=== PATIENT | male | born 1985 | race Asian ===

== ENCOUNTER 2019-01-30 08:14 | Emergency (ER) | payer OTHER ==
[~2019-01-30] VITALS: Ht 167.6 cm; Wt 68.2 kg
[~2019-01-30 08:14] MED LIST: BENA20TA11 PO; GLIM4 PO; METF-444 PO; OMEP20 PO
[2019-01-30] MEDS ORDERED: INSULIN REGULAR, HUMAN 100 UNITS/ML IVP ONE (08:30)
[2019-01-30] MEDS ORDERED: ONDANSETRON HCL 4 MG/2 ML VIAL IVP ONE (08:30)
[2019-01-30] MEDS ORDERED: SODIUM CHLORIDE 0.9% 1,000 ML IV ONE (08:30)
[2019-01-30 08:52] LABS: BASOPHILS % (AUTO) 0.9 % (0.0-2.0); EOSINOPHILS % (AUTO) 1.3 % (1.0-6.0); HEMATOCRIT 53.6 % (41-53); HEMOGLOBIN 18.6 g/dL (13.5-17.5); LYMPHOCYTES # (AUTO) 1.6 K/uL (1.0-4.8); LYMPHOCYTES % (AUTO) 18.9 % (22.0-44.0); MEAN CORPUSCULAR HEMOGLOBIN 29.4 pg (26.0-34.0); MEAN CORPUSCULAR HGB CONC 34.7 G/dL (31.0-37.0); MEAN CORPUSCULAR VOLUME 85 fL (80-100); MONOCYTES # (AUTO) 0.5 K/uL (0.1-1.0); MONOCYTES % (AUTO) 5.4 % (2.0-9.0); NEUTROPHILS # (AUTO) 6.2 K/uL (1.8-7.7); NEUTROPHILS % (AUTO) 73.5 % (40.0-70.0); PLATELET COUNT (AUTO) 250 K/uL (150-450); RED BLOOD CELL COUNT(AUTO) 6.32 MIL/uL (4.50-5.90); RED CELL DISTRIBUTION WIDTH 12.8 % (11.5-14.5)
[2019-01-30 09:15] LABS: ALBUMIN 2.8 g/dL (3.4-5.0); BILIRUBIN,TOTAL 0.8 mg/dL (0.1-1.0); CALCIUM, TOTAL 9.7 mg/dL (8.8-10.5); CREATININE 2.13 mg/dL (0.60-1.30); POTASSIUM 3.9 mmol/L (3.5-5.1); TOTAL PROTEIN, SERUM 7.1 g/dL (6.4-8.2)
[2019-01-30] MEDS ORDERED: KETOROLAC TROMETHAMINE 30 MG/ML VIAL IVP ONE (09:45)
[2019-01-30 09:57] LABS: GLUCOSE,POINT OF CARE 115 MG/DL (70-110)
[2019-01-30 10:41] VITALS: BP 170/111
== END 2019-01-30 11:49 | disposition home or self-care (01) ==
LOC: EMS 08:15
DX: E11.65 Type 2 diabetes mellitus with hyperglycemia (principal); R11.2 Nausea with vomiting, unspecified; I10 Essential (primary) hypertension; G89.29 Other chronic pain; F12.90 Cannabis use, unspecified, uncomplicated
CPT/HCPCS: 36415; 80053; 82962; 83690; 85025; 93005; 96374; 96375; 99285; J1815; J1885; J2405; J7030

== ENCOUNTER 2019-03-18 08:13 | Emergency (ER) | payer OTHER ==
[~2019-03-18] VITALS: Ht 170.2 cm; Wt 75.0 kg
[~2019-03-18 08:13] MED LIST changes: -METF-444 PO
[2019-03-18] MEDS ORDERED: FENO48TA20 PO (09:29)
[2019-03-18 09:40] LABS: GLUCOSE,POINT OF CARE 244 MG/DL (70-110)
[2019-03-18] MEDS ORDERED: KETOROLAC TROMETHAMINE 30 MG/ML VIAL IM ONE (11:30)
[2019-03-18] MEDS ORDERED: LIDOCAINE 5% TRANSDERMAL PATCH TD ONE (11:30)
[2019-03-18] MEDS ORDERED: CYCLOBENZAPRINE HCL 10 MG TABLET PO ONE (11:30)
[2019-03-18 11:34] VITALS: BP 141/86
== END 2019-03-18 11:51 | disposition home or self-care (01) ==
LOC: EMS 08:15
DX: S13.4XXA Sprain of ligaments of cervical spine, initial encounter (principal); E11.9 Type 2 diabetes mellitus without complications; I10 Essential (primary) hypertension; F12.90 Cannabis use, unspecified, uncomplicated; Z98.890 Other specified postprocedural states; Z79.899 Other long term (current) drug therapy; X50.9XXA Other and unspecified overexertion or strenuous movements or postures, initial encounter; Y93.89 Activity, other specified; Y92.89 Other specified places as the place of occurrence of the external cause; Y99.8 Other external cause status
CPT/HCPCS: 82962; 96372; 99283; J1885

== ENCOUNTER 2019-08-31 11:26 | Emergency (ER) | payer OTHER ==
[~2019-08-31] VITALS: Ht 167.6 cm; Wt 79.5 kg
[~2019-08-31 11:26] MED LIST changes: +FENO48TA20 PO
[2019-08-31 13:30] LABS: BASOPHILS % (AUTO) 0.9 % (0.0-2.0); EOSINOPHILS % (AUTO) 0.5 % (1.0-6.0); HEMATOCRIT 46.9 % (41-53); HEMOGLOBIN 16.1 g/dL (13.5-17.5); LYMPHOCYTES # (AUTO) 1.1 K/uL (1.0-4.8); MEAN CORPUSCULAR HEMOGLOBIN 29.4 pg (26.0-34.0); MEAN CORPUSCULAR HGB CONC 34.4 G/dL (31.0-37.0); MEAN CORPUSCULAR VOLUME 86 fL (80-100); MONOCYTES # (AUTO) 0.4 K/uL (0.1-1.0); MONOCYTES % (AUTO) 4.5 % (2.0-9.0); NEUTROPHILS # (AUTO) 6.6 K/uL (1.8-7.7); NEUTROPHILS % (AUTO) 81.1 % (40.0-70.0); PLATELET COUNT (AUTO) 299 K/uL (150-450); RED BLOOD CELL COUNT(AUTO) 5.48 MIL/uL (4.50-5.90); RED CELL DISTRIBUTION WIDTH 12.8 % (11.5-14.5)
[2019-08-31] MEDS ORDERED: ONDANSETRON HCL 4 MG/2 ML VIAL IVP ONE ×2 (13:30→19:00)
[2019-08-31] MEDS ORDERED: SODIUM CHLORIDE 0.9% 1,000 ML IV ONE ×2 (13:30→14:00)
[2019-08-31] MEDS ORDERED: DICYCLOMINE HCL 20 MG TABLET PO ONE (13:30)
[2019-08-31 13:44] LABS: CALCIUM, TOTAL 9.4 mg/dL (8.8-10.5); CREATININE 2.29 mg/dL (0.60-1.30); POTASSIUM 3.8 mmol/L (3.5-5.1)
[2019-08-31 13:49] LABS: ALBUMIN 2.9 g/dL (3.4-5.0); BILIRUBIN,TOTAL 0.7 mg/dL (0.1-1.0); TOTAL PROTEIN, SERUM 7.2 g/dL (6.4-8.2)
[2019-08-31] MEDS ORDERED: HALOPERIDOL LACTATE 5 MG/ML VIAL IVP ONE (14:45)
[2019-08-31] MEDS ORDERED: METOCLOPRAMIDE HCL 5 MG/ML 2 ML VIAL IVP ONE (15:15)
[2019-08-31] MEDS ORDERED: BENAZEPRIL HCL 20 MG TABLET PO ONE (15:30)
[2019-08-31 15:48] LABS: APPEARANCE,URINE CLEAR (CLEAR); BILIRUBIN,URINE NEGATIVE (NEGATIVE); GLUCOSE, URINE (UA) >=1000 mg/dL (NEGATIVE); KETONES,URINE 15 mg/dL (NEGATIVE); LEUKOCYTE ESTERASE ,URINE NEGATIVE (NEGATIVE); NITRATE,URINE NEGATIVE (NEGATIVE); OCCULT BLOOD,URINE SMALL (NEGATIVE); PH,URINE 7.5 (5.0-8.0); PROTEIN,URINE SEE CONFIRM (NEGATIVE); UROBILINOGEN,URINE 0.2 mg/dL (<=1.0)
[2019-08-31 15:56] LABS: SULFOSALICYLIC ACID,URINE 4+ (Negative)
[2019-08-31 16:01] LABS: AMPHET/METH SCREEN,URINE NEGATIVE (NEGATIVE); BARBITURATE SCREEN, URINE NEGATIVE (NEGATIVE); BENZODIAZEPINES SCREEN,URINE NEGATIVE (NEGATIVE); CANNABINOID SCREEN,URINE POSITIVE (NEGATIVE); COCAINE SCREEN,URINE NEGATIVE (NEGATIVE); METHADONE SCREEN, URINE NEGATIVE (NEGATIVE); OPIATE SCREEN,URINE NEGATIVE (NEGATIVE)
[2019-08-31 16:02] LABS: BACTERIA,URINE None Seen /HPF (None Seen); PHENCYCLIDINE SCREEN,URINE NEGATIVE (NEGATIVE); SQUAMOUS EPITHELIAL CELL,UR None Seen /LPF (None Seen); WBC,URINE 0-2 /HPF (0-5)
[2019-08-31] MEDS ORDERED: HydrALAZINE HCL 20 MG/ML VIAL IVP ONE ×2 (16:30→19:45)
[2019-08-31 18:01] LABS: GLUCOSE,POINT OF CARE 264 MG/DL (70-110)
[2019-08-31] MEDS ORDERED: KETOROLAC TROMETHAMINE 30 MG/ML VIAL IVP ONE (19:45)
[2019-08-31 20:30] VITALS: BP 149/94
[2019-08-31 20:47] LABS: GLUCOSE,POINT OF CARE 221 MG/DL (70-110)
== END 2019-08-31 21:07 | disposition short-term general hospital (02) ==
LOC: EMS 11:35
DX: I16.0 Hypertensive urgency (principal); R11.2 Nausea with vomiting, unspecified; I10 Essential (primary) hypertension; R80.9 Proteinuria, unspecified; E11.9 Type 2 diabetes mellitus without complications; Z79.899 Other long term (current) drug therapy
CPT/HCPCS: 36245; 36415; 36569; 70450; 74022; 76937; 80053; 80307; 81001; 82962; 83690; 85025; 93005; 96361; 96374; 96375; 96376; 99291; J0360; J1630; J1885; J2405; J2765; J7030

== ENCOUNTER 2020-07-12 06:51 | Emergency (ER) | payer OTHER ==
[~2020-07-12] VITALS: Ht 167.6 cm; Wt 72.7 kg
[~2020-07-12 06:51] MED LIST changes: +AMLO-258 PO; -BENA20TA11 PO; -FENO48TA20 PO; -GLIM4 PO; +LOSA50TA37 PO
[2020-07-12] MEDS ORDERED: SODIUM CHLORIDE 0.9% 1,000 ML IV ONE ×2 (07:15→10:00)
[2020-07-12] MEDS ORDERED: ONDANSETRON HCL 4 MG/2 ML VIAL IVP ONE (07:15)
[2020-07-12] MEDS ORDERED: ACETAMINOPHEN 1000 MG/ISO-OSM 100 ML IV ONE (07:30)
[2020-07-12 07:39] LABS: EOSINOPHILS % (AUTO) 1.2 % (1.0-6.0); HEMOGLOBIN 14.9 g/dL (13.5-17.5); LYMPHOCYTES # (AUTO) 1.4 K/uL (1.0-4.8); MEAN CORPUSCULAR HEMOGLOBIN 28.8 pg (26.0-34.0); MEAN CORPUSCULAR HGB CONC 34.6 G/dL (31.0-37.0); MEAN CORPUSCULAR VOLUME 83 fL (80-100); MONOCYTES # (AUTO) 0.4 K/uL (0.1-1.0); MONOCYTES % (AUTO) 5.6 % (2.0-9.0); NEUTROPHILS # (AUTO) 4.6 K/uL (1.8-7.7); NEUTROPHILS % (AUTO) 70.2 % (40.0-70.0); PLATELET COUNT (AUTO) 280 K/uL (150-450); RED BLOOD CELL COUNT(AUTO) 5.16 MIL/uL (4.50-5.90); RED CELL DISTRIBUTION WIDTH 12.7 % (11.5-14.5)
[2020-07-12 07:47] LABS: CREATININE 3.02 mg/dL (0.60-1.30); POTASSIUM 3.2 mmol/L (3.5-5.1)
[2020-07-12 07:52] LABS: ALBUMIN 2.4 g/dL (3.4-5.0); BILIRUBIN,TOTAL 0.6 mg/dL (0.1-1.0); TOTAL PROTEIN, SERUM 6.2 g/dL (6.4-8.2)
[2020-07-12] MEDS ORDERED: HALOPERIDOL LACTATE 5 MG/ML VIAL IVP ONE (08:45)
[2020-07-12] MEDS ORDERED: METOCLOPRAMIDE HCL 5 MG/ML 2 ML VIAL IVP ONE (10:00)
[2020-07-12 12:27] VITALS: BP 159/110
== END 2020-07-12 12:45 | disposition home or self-care (01) ==
LOC: EMS 06:53
DX: F12.988 Cannabis use, unspecified with other cannabis-induced disorder (principal); R11.10 Vomiting, unspecified; E11.65 Type 2 diabetes mellitus with hyperglycemia; N28.9 Disorder of kidney and ureter, unspecified; I10 Essential (primary) hypertension; Z79.899 Other long term (current) drug therapy
CPT/HCPCS: 36415; 80053; 82962; 83690; 85025; 93005; 96361; 96374; 96375; 99285; J0131; J1630; J2405; J2765; J7030

== ENCOUNTER 2021-01-08 06:23 | Inpatient (IN) | payer OTHER ==
[~2021-01-08] VITALS: Ht 167.6 cm; Wt 75.5 kg
[~2021-01-08 06:23] MED LIST changes: +HYDR25TA84 PO; +INSLAN SQ; -LOSA50TA37 PO; +METO5TAB95 PO
[2021-01-08] MEDS ORDERED: GLYB2.5T6 PO (06:38)
[2021-01-08] MEDS ORDERED: SODIUM CHLORIDE 0.9% 1,000 ML IV ONE (06:45)
[2021-01-08] MEDS ORDERED: ONDANSETRON HCL 4 MG/2 ML VIAL IVP ONE (06:45)
[2021-01-08 06:54] LABS: BASOPHILS % (AUTO) 0.8 % (0.0-2.0); EOSINOPHILS % (AUTO) 0.1 % (1.0-6.0); HEMATOCRIT 42.9 % (41-53); HEMOGLOBIN 14.6 g/dL (13.5-17.5); LYMPHOCYTES # (AUTO) 1.1 K/uL (1.0-4.8); MEAN CORPUSCULAR HEMOGLOBIN 28.8 pg (26.0-34.0); MEAN CORPUSCULAR HGB CONC 34.1 G/dL (31.0-37.0); MEAN CORPUSCULAR VOLUME 85 fL (80-100); MONOCYTES # (AUTO) 0.3 K/uL (0.1-1.0); MONOCYTES % (AUTO) 3.8 % (2.0-9.0); NEUTROPHILS # (AUTO) 7.4 K/uL (1.8-7.7); NEUTROPHILS % (AUTO) 83.3 % (40.0-70.0); PLATELET COUNT (AUTO) 277 K/uL (150-450); RED BLOOD CELL COUNT(AUTO) 5.07 MIL/uL (4.50-5.90); RED CELL DISTRIBUTION WIDTH 13.5 % (11.5-14.5)
[2021-01-08 07:01] LABS: CALCIUM, TOTAL 8.6 mg/dL (8.8-10.5); CREATININE 6.13 mg/dL (0.60-1.30); POTASSIUM 3.8 mmol/L (3.5-5.1)
[2021-01-08 07:09] LABS: ALBUMIN 2.4 g/dL (3.4-5.0); BILIRUBIN,TOTAL 0.6 mg/dL (0.1-1.0); TOTAL PROTEIN, SERUM 6.7 g/dL (6.4-8.2)
[2021-01-08 07:10] LABS: GLUCOSE,POINT OF CARE 343 MG/DL (70-110)
[2021-01-08] MEDS ORDERED: ONDANSETRON HCL 4 MG/2 ML VIAL IVP PRN (07:45)
[2021-01-08] MEDS ORDERED: HALOPERIDOL LACTATE 5 MG/ML VIAL IVP ONE (07:45)
[2021-01-08] MEDS ORDERED: ACETAMINOPHEN 325 MG TABLET PO PRN (07:45)
[2021-01-08 08:43] LABS: COVID AG,FIA SOURCE NASOPHARYNGEAL
[2021-01-08 09:14] LABS: GLUCOSE,POINT OF CARE 333 MG/DL (70-110)
[2021-01-08] MEDS ORDERED: DEXTROSE 50%-WATER 25 GM/50 ML SYRINGE IVP PRN (10:30)
[2021-01-08] MEDS ORDERED: HydrALAZINE HCL 20 MG/ML VIAL IVP PRN (10:45)
[2021-01-08] MEDS ORDERED: HydrALAZINE HCL 20 MG/ML VIAL IVP ONE (10:45)
[2021-01-08] MEDS: INSULIN LISPRO 100 UNITS/ML SQ PRN ×2 (10:50→20:47)
[2021-01-08 10:57] LABS: GLUCOSE,POINT OF CARE 325 MG/DL (70-110)
[2021-01-08 11:05] LABS: APPEARANCE,URINE CLEAR (CLEAR); BILIRUBIN,URINE NEGATIVE (NEGATIVE); GLUCOSE, URINE (UA) >=1000 mg/dL (NEGATIVE); KETONES,URINE 15 mg/dL (NEGATIVE); LEUKOCYTE ESTERASE ,URINE NEGATIVE (NEGATIVE); NITRATE,URINE NEGATIVE (NEGATIVE); OCCULT BLOOD,URINE SMALL (NEGATIVE); PROTEIN,URINE SEE CONFIRM (NEGATIVE); UROBILINOGEN,URINE 0.2 mg/dL (<=1.0)
[2021-01-08 11:08] LABS: AMPHET/METH SCREEN,URINE NEGATIVE (NEGATIVE); BARBITURATE SCREEN, URINE NEGATIVE (NEGATIVE); BENZODIAZEPINES SCREEN,URINE NEGATIVE (NEGATIVE); CANNABINOID SCREEN,URINE POSITIVE (NEGATIVE); COCAINE SCREEN,URINE NEGATIVE (NEGATIVE); METHADONE SCREEN, URINE NEGATIVE (NEGATIVE); OPIATE SCREEN,URINE NEGATIVE (NEGATIVE)
[2021-01-08 11:17] LABS: PHENCYCLIDINE SCREEN,URINE NEGATIVE (NEGATIVE)
[2021-01-08 11:18] LABS: SULFOSALICYLIC ACID,URINE 3+ (Negative)
[2021-01-08 11:19] LABS: BACTERIA,URINE None Seen /HPF (None Seen); RBC,URINE 0-2 /HPF (0-2); SQUAMOUS EPITHELIAL CELL,UR Few /LPF (None Seen); WBC,URINE None Seen /HPF (0-5)
[2021-01-08 11:24] VITALS: BP 127/80
[2021-01-08 15:22] VITALS: BP 142/97
[2021-01-08] MEDS ORDERED: MORPHINE SULFATE 2 MG/ML SYRINGE IVP PRN (16:15)
[2021-01-08] MEDS: METOCLOPRAMIDE HCL 5 MG TABLET PO SCH ×2 (16:45→20:46)
[2021-01-08] MEDS: DEXTROSE 5%-0.45% SODIUM CHL 1,000 ML IV SCH (16:47)
[2021-01-08 20:36] VITALS: BP 155/94
[2021-01-08] MEDS ORDERED: HydrALAZINE HCL 25 MG TABLET PO ONE (20:45)
[2021-01-08] MEDS ORDERED: ZOLPIDEM TARTRATE 5 MG TABLET PO PRN (20:45)
[2021-01-08] MEDS ORDERED: INSULIN GLARGINE,HUM.REC.ANLOG 100 UNITS/ML SQ SCH (21:00)
[2021-01-09 05:11] VITALS: BP 151/100
[2021-01-09] MEDS: INSULIN LISPRO 100 UNITS/ML SQ PRN ×2 (05:16→11:45)
[2021-01-09] MEDS: DEXTROSE 5%-0.45% SODIUM CHL 1,000 ML IV SCH (06:03)
[2021-01-09 07:23] VITALS: BP 167/108
[2021-01-09] MEDS: METOCLOPRAMIDE HCL 5 MG TABLET PO SCH ×2 (08:01→16:42)
[2021-01-09] MEDS ORDERED: OMEPRAZOLE 20 MG CAPSULE PO SCH (09:00)
[2021-01-09] MEDS ORDERED: HydrALAZINE HCL 25 MG TABLET PO SCH (09:00)
[2021-01-09] MEDS ORDERED: AmLODIPine BESYLATE 10 MG TABLET PO SCH (09:00)
[2021-01-09 09:14] LABS: GLUCOMETER DEV NAME(LOC) 6N.1; GLUCOSE,POINT OF CARE 117 MG/DL (70-110)
[2021-01-09 09:26] VITALS: BP 152/101
[2021-01-09 10:54] LABS: GLUCOMETER DEV NAME(LOC) 6S.1; GLUCOSE,POINT OF CARE 137 MG/DL (70-110)
[2021-01-09 10:54] LABS: GLUCOMETER DEV NAME(LOC) 6S.1; GLUCOSE,POINT OF CARE 194 MG/DL (70-110)
[2021-01-09 14:42] LABS: GLUCOMETER DEV NAME(LOC) 6N.1; GLUCOSE,POINT OF CARE 219 MG/DL (70-110)
[2021-01-09] MEDS ORDERED: HydrALAZINE HCL 50 MG TABLET PO ONE (15:30)
[2021-01-09] MEDS ORDERED: FENO54TA7 PO (15:39)
[2021-01-09] MEDS ORDERED: GLIM4 PO (15:39)
[2021-01-09] MEDS ORDERED: HYDR50TA36 PO (15:52)
[2021-01-09] MEDS ORDERED: INSLAN SQ (15:57)
[2021-01-09 16:10] LABS: CREATININE 5.14 mg/dL (0.60-1.30); POTASSIUM 3.1 mmol/L (3.5-5.1)
[2021-01-09] MEDS ORDERED: POTASSIUM CHLORIDE 20 MEQ ER TABLET PO ONE (16:30)
[2021-01-09 16:49] VITALS: BP 154/105
[2021-01-09] MEDS ORDERED: HydrALAZINE HCL 50 MG TABLET PO SCH (21:00)
== END 2021-01-09 17:31 | disposition home or self-care (01) | DRG 249 ==
LOC: EMS 06:27 → 6N 08:21
PROVIDERS: ADMIT Hospitalist; ATTEND Hospitalist
DX: R11.2 Nausea with vomiting, unspecified (principal); N17.9 Acute kidney failure, unspecified; E11.22 Type 2 diabetes mellitus with diabetic chronic kidney disease; E11.43 Type 2 diabetes mellitus with diabetic autonomic (poly)neuropathy; K31.84 Gastroparesis; E86.0 Dehydration; R10.9 Unspecified abdominal pain; F12.90 Cannabis use, unspecified, uncomplicated; I12.9 Hypertensive chronic kidney disease with stage 1 through stage 4 chronic kidney disease, or unspecified chronic kidney disease; N18.9 Chronic kidney disease, unspecified; E11.65 Type 2 diabetes mellitus with hyperglycemia; E87.6 Hypokalemia; Z20.822 Contact with and (suspected) exposure to COVID-19; Z91.19 Patient's noncompliance with other medical treatment and regimen
CPT/HCPCS: 71045; 80048; 80053; 81001; 81002; 82962; 83690; 85025; 93005; 99285; J0360; J1630; J1815; J2405; J7030; 36415-L1; 36415-TC

== ENCOUNTER 2022-04-15 14:24 | Emergency (ER) | payer MEDICARE, MEDICAID ==
[~2022-04-15] VITALS: Ht 167.6 cm; Wt 77.0 kg
[~2022-04-15 14:24] MED LIST changes: -HYDR25TA84 PO; +HYDR50TA36 PO; -METO5TAB95 PO
[2022-04-15] MEDS ORDERED: SODIUM CHLORIDE 0.9% 500 ML IV ONE (14:45)
[2022-04-15] MEDS ORDERED: ONDANSETRON HCL 4 MG/2 ML VIAL IVP ONE (14:45)
[2022-04-15 16:06] VITALS: BP 154/90
[2022-04-15 16:14] LABS: BASOPHILS % (AUTO) 0.9 % (0.0-2.0); EOSINOPHILS % (AUTO) 0.4 % (1.0-6.0); HEMATOCRIT 37.1 % (41-53); HEMOGLOBIN 12.2 g/dL (13.5-17.5); LYMPHOCYTES # (AUTO) 1.1 K/uL (1.0-4.8); LYMPHOCYTES % (AUTO) 10.9 % (22.0-44.0); MEAN CORPUSCULAR HEMOGLOBIN 27.8 pg (26.0-34.0); MEAN CORPUSCULAR HGB CONC 32.9 G/dL (31.0-37.0); MEAN CORPUSCULAR VOLUME 85 fL (80-100); MONOCYTES # (AUTO) 0.4 K/uL (0.1-1.0); NEUTROPHILS # (AUTO) 8.1 K/uL (1.8-7.7); NEUTROPHILS % (AUTO) 83.8 % (40.0-70.0); PLATELET COUNT (AUTO) 264 K/uL (150-450); RED BLOOD CELL COUNT(AUTO) 4.38 MIL/uL (4.50-5.90)
[2022-04-15 17:19] LABS: CALCIUM, TOTAL 8.8 mg/dL (8.8-10.5); CREATININE 7.75 mg/dL (0.60-1.30); POTASSIUM 3.4 mmol/L (3.5-5.1)
[2022-04-15 17:22] LABS: INR 0.9 (0.9-1.1); PROTHROMBIN TIME 9.8 SEC (9.4-11.6)
[2022-04-15] MEDS ORDERED: 0.9126SP NASAL (17:22)
[2022-04-15 17:25] LABS: ALBUMIN 3.1 g/dL (3.4-5.0); BILIRUBIN,TOTAL 0.5 mg/dL (0.1-1.0); TOTAL PROTEIN, SERUM 7.2 g/dL (6.4-8.2)
[2022-04-15] MEDS ORDERED: ONDA-104 PO (17:32)
== END 2022-04-15 17:57 | disposition home or self-care (01) ==
LOC: EMS 14:37
DX: R11.2 Nausea with vomiting, unspecified (principal); E11.22 Type 2 diabetes mellitus with diabetic chronic kidney disease; I12.9 Hypertensive chronic kidney disease with stage 1 through stage 4 chronic kidney disease, or unspecified chronic kidney disease; N18.9 Chronic kidney disease, unspecified; F12.90 Cannabis use, unspecified, uncomplicated; Z98.890 Other specified postprocedural states; G89.29 Other chronic pain; R10.9 Unspecified abdominal pain
CPT/HCPCS: 99285; 74176; 96374; 71045; 96361; 80053; 83880; 84484; 85025; 85610; 85730; 36415; 93005; J2405; J7030

== ENCOUNTER 2022-06-06 16:26 | Emergency (ER) | payer MEDICARE, MEDICAID ==
[~2022-06-06] VITALS: Ht 170.2 cm; Wt 75.0 kg
[~2022-06-06 16:26] MED LIST changes: +0.9126SP NASAL; +ONDA-104 PO
[2022-06-06 16:46] LABS: GLUCOSE,POINT OF CARE 149 MG/DL (70-110)
[2022-06-06 17:22] LABS: COVID AG,FIA SOURCE NASAL SWAB
[2022-06-06 17:43] LABS: INFLUENZA TYPE A NEGATIVE FOR TYPE A (NEGATIVE); INFLUENZA TYPE B NEGATIVE FOR TYPE B (NEGATIVE)
[2022-06-06 18:53] LABS: BASOPHILS % (AUTO) 0.8 % (0.0-2.0); EOSINOPHILS % (AUTO) 3.2 % (1.0-6.0); HEMATOCRIT 33.2 % (41-53); HEMOGLOBIN 10.7 g/dL (13.5-17.5); LYMPHOCYTES # (AUTO) 1.7 K/uL (1.0-4.8); LYMPHOCYTES % (AUTO) 21.3 % (22.0-44.0); MEAN CORPUSCULAR HEMOGLOBIN 28.2 pg (26.0-34.0); MEAN CORPUSCULAR HGB CONC 32.2 G/dL (31.0-37.0); MEAN CORPUSCULAR VOLUME 87 fL (80-100); MONOCYTES # (AUTO) 0.4 K/uL (0.1-1.0); MONOCYTES % (AUTO) 5.5 % (2.0-9.0); NEUTROPHILS # (AUTO) 5.5 K/uL (1.8-7.7); NEUTROPHILS % (AUTO) 69.2 % (40.0-70.0); PLATELET COUNT (AUTO) 313 K/uL (150-450); RED CELL DISTRIBUTION WIDTH 16.1 % (11.5-14.5)
[2022-06-06 19:06] LABS: CALCIUM, TOTAL 9.3 mg/dL (8.8-10.5); CREATININE 10.08 mg/dL (0.60-1.30); POTASSIUM 4.1 mmol/L (3.5-5.1)
[2022-06-06 19:08] VITALS: BP 142/97
== END 2022-06-06 19:38 | disposition home or self-care (01) ==
LOC: EMS 16:30
DX: R07.89 Other chest pain (principal); R06.09 Other forms of dyspnea; N18.6 End stage renal disease; E11.9 Type 2 diabetes mellitus without complications; I10 Essential (primary) hypertension; K29.70 Gastritis, unspecified, without bleeding; G89.29 Other chronic pain; F12.90 Cannabis use, unspecified, uncomplicated; Z20.822 Contact with and (suspected) exposure to COVID-19
CPT/HCPCS: 71045; 80048; 82962; 84484; 85025; 87804; 93005; 99285; 36415-L1; 36415-TC

== ENCOUNTER 2023-07-02 06:37 | Emergency (ER) | payer MEDICARE, MEDICAID ==
[~2023-07-02] VITALS: Ht 170.2 cm; Wt 75.0 kg
[2023-07-02 06:41] VITALS: TEMP 97.6
[2023-07-02 07:03] VITALS: BP 132/84; PULSE 84; RESP 16
[2023-07-02 07:05] LABS: GLUCOMETER DEV NAME(LOC) ERT.5; GLUCOSE,POINT OF CARE 94 MG/DL (70-110)
[2023-07-02] MEDS ORDERED: CIPOTIC AS (07:42)
[2023-07-03] MEDS ORDERED: CORTSOL AS (13:46)
== END 2023-07-02 08:46 | disposition home or self-care (01) ==
LOC: EMS 06:37
DX: S09.91XA Unspecified injury of ear, initial encounter (principal); E11.9 Type 2 diabetes mellitus without complications; I10 Essential (primary) hypertension; F12.90 Cannabis use, unspecified, uncomplicated; X58.XXXA Exposure to other specified factors, initial encounter; Y93.89 Activity, other specified; Y92.89 Other specified places as the place of occurrence of the external cause; Y99.8 Other external cause status
CPT/HCPCS: 82962; 99283

== ENCOUNTER 2023-09-09 00:26 | Emergency (ER) | payer OTHER ==
[~2023-09-09] VITALS: Ht 167.6 cm; Wt 75.0 kg
[~2023-09-09 00:26] MED LIST changes: -0.9126SP NASAL; -AMLO-258 PO; +CIPOTIC AS; +CORTSOL AS; -HYDR50TA36 PO; -INSLAN SQ; -OMEP20 PO; -ONDA-104 PO
[2023-09-09 00:29] VITALS: TEMP 98
[2023-09-09] MEDS: PredniSONE 10 MG TABLET PO ONE (00:54)
[2023-09-09] MEDS: LORazepam 1 MG TABLET PO ONE (01:16)
[2023-09-09 01:30] LABS: HEMATOCRIT 29.2 % (41-53); HEMOGLOBIN 9.3 g/dL (13.5-17.5); MEAN CORPUSCULAR HEMOGLOBIN 29.4 pg (26.0-34.0); MEAN CORPUSCULAR HGB CONC 31.9 G/dL (31.0-37.0); MEAN CORPUSCULAR VOLUME 92 fL (80-100); PLATELET COUNT (AUTO) 157 K/uL (150-450); RED BLOOD CELL COUNT(AUTO) 3.16 MIL/uL (4.50-5.90); RED CELL DISTRIBUTION WIDTH 18.1 % (11.5-14.5); WHITE BLOOD COUNT (AUTO) 6.8 K/uL (4.5-11.0)
[2023-09-09 01:31] LABS: CALCIUM, TOTAL 9.3 mg/dL (8.8-10.5); POTASSIUM 4.7 mmol/L (3.5-5.1)
[2023-09-09 01:32] LABS: BAND NEUTROPHILS % (MANUAL) 0 % (0-5)
[2023-09-09 01:37] LABS: ALBUMIN 3.6 g/dL (3.4-5.0); BILIRUBIN,TOTAL 1.2 mg/dL (0.1-1.0); TOTAL PROTEIN, SERUM 7.9 g/dL (6.4-8.2)
[2023-09-09] MEDS ORDERED: PRED-729 PO (01:53)
[2023-09-09] MEDS ORDERED: DIPH-1243 PO (01:53)
[2023-09-09 02:01] LABS: LYMPHOCYTES % (MANUAL) 15 % (22-44); MONOCYTES % (MANUAL) 8 % (2-9); SEGMENTED NEUTROPHILS % 77 % (40-70); TOTAL CELLS COUNTED 100
[2023-09-09 02:05] VITALS: BP 129/71; PULSE 83; RESP 16
[2023-09-09] MEDS: LORATADINE 10 MG TABLET PO ONE (02:08)
== END 2023-09-09 03:33 | disposition home or self-care (01) ==
LOC: EMS 00:27
DX: L29.9 Pruritus, unspecified (principal); E11.9 Type 2 diabetes mellitus without complications; I10 Essential (primary) hypertension; F12.90 Cannabis use, unspecified, uncomplicated
CPT/HCPCS: 99284; 80053; 85025; 36415; J7512